=== PATIENT | male | born 1970 | race Caucasian/White ===

== ENCOUNTER 2018-01-26 21:54 | Emergency (ER) | payer OTHER ==
[~2018-01-26] VITALS: Ht 200.7 cm; Wt 136.1 kg
[2018-01-26 22:21] LABS: ABSOLUTE BASOPHILS 0.1 thou/uL (0.0-0.2); ABSOLUTE EOSINOPHILS 0.3 thou/uL (0.0-0.7); ABSOLUTE LYMPHOCYTES 1.9 thou/uL (0.8-5.3); ABSOLUTE MONOCYTES 0.5 thou/uL (0.0-1.2); ABSOLUTE NEUTROPHILS 3.2 thou/uL (1.6-8.1); BASOPHILS 1.1 %; EOSINOPHILS 4.4 %; HEMATOCRIT 40.7 % (42.0-52.0); HEMOGLOBIN 14.1 gm/dL (14.0-18.0); LYMPHOCYTES 31.4 %; MCH 28.9 pg (26.0-34.0); MCHC 34.7 g/dL (28.0-37.0); MCV 83.3 fL (80.0-100.0); MONOCYTES 9.3 %; MPV 7.5 fl. (7.2-11.1); NUCLEATED RBCS 0 /100WBC; PLATELET COUNT* 209 thou/uL (150-400); POLYS 53.8 %; RBC 4.88 mil/uL (4.50-6.00); RDW-CV 13.9 % (10.5-14.5); WBC 5.9 thou/uL (4.0-11.0)
[2018-01-26 22:25] LABS: ANION GAP 7 mmol/L (7-16); BUN 18 mg/dL (7-18); CALCIUM 8.8 mg/dL (8.5-10.1); CHLORIDE 107 mmol/L (98-107); CO2 27 mmol/L (21-32); CREATININE 1.2 mg/dL (0.6-1.3); GLUCOSE 139 mg/dL (70-99); POTASSIUM 3.6 mmol/L (3.5-5.1); SODIUM 141 mmol/L (136-145)
[2018-01-26 22:36] LABS: ALKALINE PHOSPHATASE 62 U/L (46-116); LIPASE 105 U/L (73-393); NT-PRO BRAIN NAT PEPTIDE 14 pg/mL (<300); SGOT 35 U/L (15-37); SGPT 62 U/L (30-65); TOTAL BILIRUBIN 0.9 mg/dL (<0.1-1.0); TOTAL PROTEIN 7.3 g/dL (6.4-8.2); TROPONIN-I LEVEL <0.06 ng/mL (<0.06)
[2018-01-26 22:45] LABS: PROTIME 10.1 Seconds (9.20-11.50)
[2018-01-26 23:15] VITALS: BP 142/90
--- NOTE | 2018-01-28 17:18 | EKG ---
[place] [address] ELECTROCARDIOGRAM REPORT Name: REGINA BANUELOS Room: [facility]#: [id number] Admission: 01/26/18 Attend Phys: Discharge: 01/26/18 Date of : 68 Report #: [id number] THIS REPORT FOR: //name// [facility] ED Test Date: 2018-01-26 Test Time: 22:07:25 Pat Name: REGINA JBBK Department: Room: Gender: M [employer]: DANITA : 1970 Requested By: Randa Vora Order Number: [id number] MD: Walker Oropeza Measurements Intervals [place] Rate: 73 P: 28 WV: 156 QRS: 7 QRSD: 87 T: 33 QT: 389 QTc: 429 Interpretive Statements Sinus rhythm Abnormal R-wave progression, early transition No previous ECG available for comparison Electronically Signed On 01-28-2018 17:18:11 CDT by Walker Oropeza [email or web address] <ELECTRONICALLY SIGNED> By: Walker Oropeza MD, [facility] 01/28/18 1718 [id number] Walker Oropeza MD, FAC /EPI
== END 2018-01-26 23:15 | disposition home or self-care (01) ==
LOC: M.ERS 21:54
PROVIDERS: Emergency Medicine
DX: R07.89 Other chest pain (principal)